=== PATIENT | male | born 1965 | race Caucasian/White ===

== ENCOUNTER 2018-05-31 08:06 | Emergency (ER) | payer OTHER, BC ==
[~2018-05-31] VITALS: Ht 185.4 cm; Wt 90.7 kg
[2018-05-31 08:06] VITALS: BP_SYST 199
--- NOTE | 2018-05-31 08:06 | NUR ---
ZAC Andino at bedside examining patient.
--- NOTE | 2018-05-31 08:06 | NUR ---
BROUGHT BACK TO BED #8 IMMEDIATELY AND EKG AT BEDSIDE. DR ALEMAN CALLED TO BEDSIDE FOR EKG READING OF ACUTE GA.
--- NOTE | 2018-05-31 08:06 | NUR ---
patient arrived with from home with full mentation. patient c/o 10/10 chest pain since 3:00 today. patient was pink, diaphoretic, clutching his chest, chest pain down the left arm and tachypnic. Patient states "I feel like I'm going to . Every male in the family ." No other complaint or injury at this time.
--- NOTE | 2018-05-31 08:06 | NUR ---
TRIAGED AND REPORT GIVEN TO OLIVIA
[2018-05-31] MEDS ORDERED: ASPIRIN 81 MG TAB.CHEW PO ONE ×3 (08:15)
[2018-05-31] MEDS ORDERED: MORPHINE 4 MG/ML INJ. SYRINGE IVP ONE ×2 (08:15→08:30)
[2018-05-31] MEDS ORDERED: ONDANSETRON HCL 4 MG/2 ML VIAL IVP ONE (08:15)
--- NOTE | 2018-05-31 08:19 | NUR ---
EKG FAXED TO [facility]. CALL PLACED
--- NOTE | 2018-05-31 08:20 | NUR ---
DR ALEMAN SPEAKING WITH DR VALDES AT [facility]. PT ACCEPTED AND WILL BE TRANSFERRED
[2018-05-31] MEDS ORDERED: NITROGLYCERIN LINGUAL 400 mCg/SPRAY ONE (08:21)
[2018-05-31] MEDS ORDERED: ASPIRIN 81 MG TAB.CHEW ONE (08:21)
--- NOTE | 2018-05-31 08:22 | NUR ---
911 CALLED BY NEDRA SHARPE
[2018-05-31 08:25] LABS: BASOPHILS % (AUTO) 1.9 % (0.0-2.0); EOSINOPHILS % (AUTO) 1.8 % (0.0-4.0); HEMATOCRIT 55.1 % (36-54); HEMOGLOBIN 18.1 g/dL (14.0-18.0); MEAN CORPUSCULAR HEMOGLOBIN 28 pg (27-31); MEAN CORPUSCULAR HGB CONC 33 % (32-36); MEAN CORPUSCULAR VOLUME 86 fL (79.0-98.0); MONOCYTES % (AUTO) 5.5 % (1.7-9.3); NEUTROPHILS # (AUTO) 10.2 K/uL (1.8-7.7); NEUTROPHILS % (AUTO) 74.8 % (40.0-70.0); PLATELET COUNT (AUTO) 197 K/uL (130-430); RED BLOOD CELL COUNT(AUTO) 6.44 MIL/uL (4.2-6.2); RED CELL DISTRIBUTION WIDTH 16.8 % (9.0-15.0); WHITE BLOOD COUNT (AUTO) 13.7 K/uL (4.8-10.8)
[2018-05-31] MEDS ORDERED: MORPHINE 4 MG/ML INJ. SYRINGE ONE (08:25)
[2018-05-31] MEDS ORDERED: NITROGLYCERIN 1 INCH (GM) OINT. ONE (08:25)
[2018-05-31 08:26] LABS: BASOPHILS # (AUTO) 0.3 K/uL (0.0-0.2); EOSINOPHILS # (AUTO) 0.3 K/uL (0.0-0.4); LYMPHOCYTES # (AUTO) 2.2 K/uL (1.0-5.5); MONOCYTES # (AUTO) 0.7 K/uL (0.0-1.0)
[2018-05-31] MEDS ORDERED: NITROGLYCERIN LINGUAL 400 mCg/SPRAY TL ONE (08:30)
[2018-05-31] MEDS ORDERED: HEPARIN SODIUM,PORCINE 5000 UNITS/ML VIAL IVP ONE (08:30)
[2018-05-31] MEDS ORDERED: fentaNYL CITRATE/PF 100 MCG/2 ML AMP IVP ONE (08:30)
[2018-05-31] MEDS ORDERED: HEPARIN SODIUM,PORCINE 5000 UNITS/ML VIAL ONE (08:31)
--- NOTE | 2018-05-31 08:32 | NUR ---
Patient to be transferred to [facility]. Is being transferred due to higher level of care. Receiving facility has accepting physician and available space. ER physician has signed transfer form. Patient or responsible green party has agreed to transfer and signed form. Patient belongings inventoried and will be sent with patient. Copy of nursing notes, lab reports, EKG, Physicians Orders and X-rays to be sent with patient. Report called to at receiving facility. Receiving physician is José. [facility] ambulance service has been called for transfer. patient leaving facility at this moment.
--- NOTE | 2018-05-31 08:32 | NUR ---
[facility] [address] here to take pt to [facility]
[2018-05-31] MEDS ORDERED: fentaNYL CITRATE/PF 100 MCG/2 ML AMP ONE (08:39)
[2018-05-31 08:45] LABS: POTASSIUM 4.2 mmol/L (3.5-5.1)
[2018-05-31 08:46] LABS: ALBUMIN 3.4 g/dL (3.4-4.8); CALCIUM 8.9 mg/dL (8.4-11.0); CREATININE 1.1 mg/dL (0.55-1.30); TOTAL BILIRUBIN 0.3 mg/dL (0.0-1.0)
[2018-05-31 08:57] VITALS: BP_SYST 199
[2018-05-31 08:58] LABS: INR 0.9 (0.80-1.20); PROTHROMBIN TIME 9.4 SECS (9.5-12.5)
== END 2018-05-31 08:57 | disposition short-term general hospital (02) ==
LOC: EDBD 08:06 → SED 08:06
DX: I21.09 ST elevation (STEMI) myocardial infarction involving other coronary artery of anterior wall (principal); I10 Essential (primary) hypertension
CPT/HCPCS: 36415; 71045; 80053; 82550; 84484; 85025; 85610; 85730; 93005; 96374; 96375; 99291; J1644; J2270; J2405; J3010

== ENCOUNTER 2021-07-21 11:01 | Emergency (ER) | payer OTHER, BC ==
[~2021-07-21] VITALS: Ht 177.8 cm; Wt 83.9 kg
[2021-07-21 11:06] VITALS: BP_SYST 121
--- NOTE | 2021-07-21 11:11 | NUR ---
bib pov for nausea and vomiting, pt has back pain tx with pains meds. now n/v. pt to room 2 triage complete. report to geeta rutherford
--- NOTE | 2021-07-21 11:20 | NUR ---
patient aaox4 with N/V. denies any abdominal pain. has been taking percocet 10 for pain. stating its new medication. has never felt this way before. denies any SOB or chest pain.
--- NOTE | 2021-07-21 11:32 | NUR ---
Dr. Lizama at bedside for evaluation.
[2021-07-21] MEDS ORDERED: ONDANSETRON HCL 4 MG/2 ML VIAL IVP ONE (11:45)
[2021-07-21] MEDS ORDERED: PANTOPRAZOLE SODIUM 40 MG/VIAL (PROTONIX) IVP ONE (11:45)
[2021-07-21] MEDS ORDERED: NACL 0.9% 1,000 ML IV ONE (11:45)
[2021-07-21 12:27] LABS: BASOPHILS # (AUTO) 0.1 K/uL (0.0-0.2); BASOPHILS % (AUTO) 1.8 % (0.0-2.0); EOSINOPHILS # (AUTO) 0.1 K/uL (0.0-0.4); EOSINOPHILS % (AUTO) 1.1 % (0.0-4.0); HEMATOCRIT 42.6 % (36-54); HEMOGLOBIN 13.6 g/dL (14.0-18.0); LYMPHOCYTES # (AUTO) 1.6 K/uL (1.0-5.5); LYMPHOCYTES % (AUTO) 19.9 % (20.5-51.5); MEAN CORPUSCULAR HEMOGLOBIN 25 pg (27-31); MEAN CORPUSCULAR HGB CONC 32 % (32-36); MEAN CORPUSCULAR VOLUME 79 fL (79.0-98.0); MONOCYTES # (AUTO) 0.6 K/uL (0.0-1.0); MONOCYTES % (AUTO) 7.7 % (1.7-9.3); NEUTROPHILS # (AUTO) 5.6 K/uL (1.8-7.7); NEUTROPHILS % (AUTO) 69.5 % (40.0-70.0); PLATELET COUNT (AUTO) 271 K/uL (130-430); RED BLOOD CELL COUNT(AUTO) 5.43 MIL/uL (4.2-6.2); RED CELL DISTRIBUTION WIDTH 22.3 % (9.0-15.0); WHITE BLOOD COUNT (AUTO) 8.1 K/uL (4.8-10.8)
[2021-07-21 12:45] LABS: CALCIUM 9.5 mg/dL (8.4-11.0); CREATININE 1.01 mg/dL (0.55-1.30)
[2021-07-21 12:46] LABS: PROTHROMBIN TIME 10.6 SECS (9.5-12.5)
[2021-07-21 12:59] LABS: ALBUMIN 3.9 g/dL (3.4-4.8); TOTAL BILIRUBIN 0.2 mg/dL (0.0-1.0)
[2021-07-21] MEDS ORDERED: OXYCODONE/ACETAMINOPHEN 5-325 TABLET PO ONE (13:30)
[2021-07-21] MEDS ORDERED: LIDOCAINE PATCH 5% 1 EA TP ONE (13:30)
--- NOTE | 2021-07-21 14:00 | NUR ---
PT YELLING AT STAFF REGARDING HIS CHRONIC PAIN ISSUE. STATED "I CANT TAKE PILLS". PATIENT QUESTIONED ON HOW HE TAKES DAILY PILLS AT HOME. PATIENT STATED "THOSE GENERIC PILLS IS WHAT MAKES ME THROW UP". EDUCATED PATIENT REGARDING RECEIVING ZOFRAN AND HOW PATIENT HASNT THROWN UP SINCE.
[2021-07-21 14:10] LABS: BILIRUBIN,URINE 1+ (NEGATIVE); BLOOD, URINE NEGATIVE (NEGATIVE); CLARITY/URINE CLEAR (CLEAR); COLOR,URINE YELLOW (YELLOW); GLUCOSE,URINE NEGATIVE (NEGATIVE); KETONES,URINE 3+ (NEGATIVE); LEUKOCYTE ESTERASE ,URINE NEGATIVE (NEGATIVE); NITRITE, URINE NEGATIVE (NEGATIVE); PROTEIN URINE TRACE (NEGATIVE); UROBILINOGEN,URINE 0.2 (0.2-1.0)
[2021-07-21 14:36] LABS: BACTERIA,URINE RARE /HPF (None Seen); MUCUS,URINE 2+ /LPF (None Seen); RBC,URINE 0-3 /HPF (0-3); WBC,URINE 0-3 /HPF (0-3)
[2021-07-21] MEDS ORDERED: PERC10 PO (14:44)
[2021-07-21] MEDS ORDERED: LIDOINT TP (14:44)
[2021-07-21] MEDS ORDERED: ONDA-8 TL (14:44)
[2021-07-21 14:52] VITALS: BP_SYST 121
--- NOTE | 2021-07-21 14:54 | NUR ---
Patient given written and verbal discharge instructions and verbalizes understanding. DR. SUSY FRANK MD discussed with patient the results and treatment provided. Patient in stable condition. ID arm band removed. IV catheter removed intact and dressing applied, no active bleeding. Rx of PERCOCET, ZOFRAN, LIDOCAINE given. Patient educated on pain management and to follow up with PMD. Pain Scale . Opportunity for questions provided and answered. Medication side effect fact sheet provided.
== END 2021-07-21 14:54 | disposition home or self-care (01) ==
LOC: SED 11:01
DX: R11.2 Nausea with vomiting, unspecified (principal); G89.29 Other chronic pain; M54.9 Dorsalgia, unspecified; I10 Essential (primary) hypertension; Z79.899 Other long term (current) drug therapy
CPT/HCPCS: 36415; 71045; 80053; 81000; 83690; 84484; 85025; 85610; 85730; 93005; 96374; 96375; 99285; C9113; J2405